=== PATIENT | male | born 1985 | race Caucasian/White ===

== ENCOUNTER 2017-04-05 12:14 | Observation (INO) | payer SELFPAY ==
[2017-04-05] MEDS ORDERED: FAMOTIDINE INJ/PF 20 MG/2 ML SDV IV ONE (12:19)
--- NOTE | 2017-04-05 12:22 | ER Document Report ---
ED General - General Stated Complaint: POSSIBLE ALLERGIC REACTION Time Seen by Provider: 04/05/17 12:19 Notes: -year-old male presents to the ED via EMS for allergic reaction/anaphylaxis. He complains of sudden onset dizziness shortness of breath and itching about an hour ago immediately after being stung by a wasp. Symptoms were constant and severe and got worse. He went to an outpatient clinic who did not have epinephrine but gave him Benadryl and Solu-Medrol intramuscularly, and called 911. EMS gave him a single dose of epinephrine, and about 15 minutes later gave a second because they did not feel he was improving. Unknown if he was never hypotensive but he was normotensive for EMS. He has no known allergies and does not use an EpiPen. In the ED he denies difficulty swallowing throat swelling voice change or shortness of breath and simply feels "jittery" from the epinephrine. Past Medical History - Social History Smoking Status: Unknown if Ever Smoked Family History: None Review of Systems - Review of Systems Notes: GEN: Dizziness, resolved ENT: Denies sore throat, nasal discharge, ear pain EYES: Denies blurry vision, eye pain, discharge CV: Denies chest pain, palpitations, edema RESP: Shortness of breath, resolved GI: Denies abdominal pain, nausea, vomiting, diarrhea MSK: Denies joint pain/swelling, edema, SKIN: Itching LYMPH: Denies swollen glands/lymph nodes NEURO: Denies headache, focal weakness or numbness, dizziness PSYCH: Denies depression, suicidal or homicidal ideation Physical Exam - Vital signs Vitals: Resp Pulse Ox 15 99 04/05/17 12:20 04/05/17 12:20 - Notes Notes: General: No acute distress, well-nourished Head: Atraumatic, normocephalic ENT: Mouth normal, oropharynx moist, no exudates or tonsillar enlargement voice normal. Intraoral structures without edema. Eyes: Conjunctiva normal, pupils equal, lids normal Neck: No JVD, supple, no guarding CVS: N cardiac e, regular rhythm, no murmurs Resp: No resp distress, equal and normal breath sounds bilaterally GI: Nondistended, soft, no tenderness to palpation, no rebound or guarding Ext: No deformities, no edema, normal range of motion in upper and lower ext Skin: blotchy confluent erythroderma/urticaria on face arms and chest. Single insect sting to the forehead without significant swelling. Lymphatic: No lymphadeopathy noted Neuro: Awake, alert. Face symmetric. Course - Re-evaluation Re-evalutation: 04/05/17 12:22 Presented to the ED with resolving episode of anaphylaxis to bee sting. He needed 2 doses of epi prehospital, however his symptoms have all but resolved except for the rash. I will complete the treatment with Pepcid, and observe him closely. 04/05/17 12:40 Reassess patient at 12:35 PM. He is comfortable with no subjective symptoms and has normal vital signs. Continue to observe. Plan for prednisone, Benadryl , and 2 epi-pens on discharge. 04/05/17 12:57 I have discussed with the patient there likely diagnosis, aftercare plan, follow -up plans and my usual and customary return precautions. They verbalized understanding of this. 04/05/17 13:55 Since rash is worsening and he appears slightly short of breath. His vitals are normal, but he feels subjectively like he wants to vomit. I believe he still has some smoldering anaphylaxis I will start him on an epinephrine drip. Spoke with Dr. Sheldon who will admit him to the ICU. - Vital Signs Vital signs: Temp Pulse Resp BP Pulse Ox 23 H 124/80 99 04/05/17 13:10 04/05/17 13:01 04/05/17 13:10 Critical Care Note - Critical Care Note Total time excluding time spent on procedures (mins): 31 Comments: The above patient is critically ill. Not including procedures, but including direct re-evaluations, speaking with patient and/or consultants, interpreting results, and documenting, I spent the total amount of minute listed listed above on critical care time. Discharge - Discharge Clinical Impression: Anaphylactic reaction Qualifiers: Encounter type: initial encounter Qualified Code(s): T78.2XXA - Anaphylactic shock, unspecified, initial encounter Condition: Critical Disposition: ADMITTED INPATIENT Admitting Provider: Hospitalist Unit Admitted: ICU Instructions: Anaphylaxis Kit ([facility]) Additional Instructions: Take [id number] Benadryl, 2 tablets every 6 hours for 3 days. I am also prescribing new epinephrine autoinjector and prednisone to take. The epinephrine is for the next time this occurs, or if her symptoms worsen while at home. Please note that anytime you use her EpiPen you should also call 911. Prescriptions: Diphenhydramine HCl [Benadryl] 25 mg PO Q6 #12 capsule Epinephrine [Epipen 2-Alexandro] 0.3 mg IM PRN PRN #2 ml PRN Reason: Itching Prednisone [Deltasone 20 mg Tablet] 3 tab PO DAILY 5 Days
[2017-04-05] MEDS ORDERED: ONDANSETRON 4 MG TAB.RAPDIS PO ONE (13:10)
[2017-04-05] MEDS ORDERED: ONDANSETRON 4 MG TAB.RAPDIS ONE (13:12)
[2017-04-05] MEDS ORDERED: NORMAL SALINE 1000 ML 1,000 ML IV ONE (13:46)
[2017-04-05] MEDS ORDERED: DEXTROSE 5%-WATER 250 ML with EPINEPHRINE/PF 1 MG IV ONE ×2 (13:50)
[2017-04-05] MEDS ORDERED: EPINEPHRINE INJ/PF 1 MG/1 ML AMPULE IV ONE ×2 (14:15)
[2017-04-05] MEDS ORDERED: ONDANSETRON HCL INJ/PF 4 MG/2 ML SDV IV PRN (14:28)
[2017-04-05] MEDS ORDERED: ACETAMINOPHEN 325 MG TABLET PO PRN (14:28)
--- NOTE | 2017-04-05 14:39 | PDOC H&P ---
History of Present Illness Admission Date/PCP: 04/05/17 14:04 Patient complains of: allergic reaction History of Present Illness: LACEY BELCHER is a 31 year-old male presents to the ED via EMS for allergic reaction/anaphylaxis. He complains of sudden onset dizziness shortness of breath and itching about an hour ago immediately after being stung by a wasp. Symptoms were constant and severe and got worse. He went to an outpatient clinic who did not have epinephrine but gave him Benadryl and Solu-Medrol intramuscularly, and called 911. EMS gave him a single dose of epinephrine, and about 15 minutes later gave a second because they did not feel he was improving. Unknown if he was never hypotensive but he was normotensive for EMS. He has no known allergies and does not use an EpiPen. In the ED he denies difficulty swallowing throat swelling voice change or shortness of breath and simply feels "jittery" from the epinephrine. Received Epi x 2 with good results. Currently denies dyspnea, nausea, vomiting. Past Medical History Cardiac Medical History: Reports: None Pulmonary Medical History: Reports: None EENT Medical History: Reports: None Neurological Medical History: Reports: None Endocrine Medical History: Reports: None Malignancy Medical History: Reports: None GI Medical History: Reports: None Musculoskeltal Medical History: Reports: None Psychiatric Medical History: Reports: None Past Surgical History Past Surgical History: Reports: None Social History Information Source: Patient Lives with: Family Smoking Status: Unknown if Ever Smoked Frequency of Alcohol Use: None Hx Recreational Drug Use: No - Advance Directive Resuscitation Status: Full Code Family History Family History: CAD Parental Family History Reviewed: Yes Children Family History Reviewed: Yes Sibling(s) Family History Reviewed.: Yes Medication/Allergy Home Medications: Diphenhydramine HCl [Benadryl] 25 mg PO Q6 #12 capsule 04/05/17 Epinephrine [Epipen 2-Alexandro] 0.3 mg IM PRN PRN #2 ml 04/05/17 Prednisone [Deltasone 20 mg Tablet] 3 tab PO DAILY 5 Days 04/05/17 Allergies/Adverse Reactions: No Known Allergies Allergy (Unverified 04/05/17 14:09) Review of Systems Constitutional: ABSENT: chills, fever(s), headache(s), weight gain, weight loss Eyes: ABSENT: visual disturbances Ears: ABSENT: hearing changes Cardiovascular: ABSENT: chest pain, dyspnea on exertion, edema, orthropnea, palpitations Respiratory: PRESENT: dyspnea. ABSENT: cough, hemoptysis Gastrointestinal: PRESENT: nausea, vomiting. ABSENT: abdominal pain, constipation, diarrhea, hematemesis, hematochezia Genitourinary: ABSENT: dysuria, hematuria Musculoskeletal: ABSENT: joint swelling Integumentary: ABSENT: rash, wounds Neurological: ABSENT: abnormal gait, abnormal speech, confusion, dizziness, focal weakness, syncope Psychiatric: ABSENT: anxiety, depression, homidical ideation, suicidal ideation Endocrine: ABSENT: cold intolerance, heat intolerance, polydipsia, polyuria Hematologic/Lymphatic: ABSENT: easy bleeding, easy bruising Physical Exam Vital Signs: Temp Pulse Resp BP Pulse Ox 22 H 130/94 H 98 04/05/17 14:01 04/05/17 14:01 04/05/17 14:01 General appearance: PRESENT: no acute distress, well-developed, well-nourished Head exam: PRESENT: atraumatic, normocephalic Eye exam: PRESENT: conjunctiva pink, EOMI, PERRLA. ABSENT: scleral icterus Ear exam: PRESENT: normal external ear exam Mouth exam: PRESENT: moist, tongue midline Neck exam: ABSENT: carotid bruit, JVD, lymphadenopathy, thyromegaly Respiratory exam: PRESENT: clear to auscultation laura. ABSENT: rales, rhonchi, wheezes Cardiovascular exam: PRESENT: RRR. ABSENT: diastolic murmur, rubs, systolic murmur Pulses: PRESENT: normal dorsalis pedis pul Vascular exam: PRESENT: normal capillary refill GI/Abdominal exam: PRESENT: normal bowel sounds, soft. ABSENT: distended, guarding, mass, organolmegaly, rebound, tenderness Rectal exam: PRESENT: deferred Extremities exam: PRESENT: full ROM. ABSENT: calf tenderness, clubbing, pedal edema Neurological exam: PRESENT: alert, awake, oriented to person, oriented to place , oriented to time, oriented to situation, CN II-XII grossly intact. ABSENT: motor sensory deficit Psychiatric exam: PRESENT: appropriate affect, normal mood. ABSENT: homicidal ideation, suicidal ideation Skin exam: PRESENT: dry, intact, warm. ABSENT: cyanosis, rash Assessment & Plan - Diagnosis (1) Anaphylactic reaction Qualifiers: Encounter type: initial encounter Qualified Code(s): T78.2XXA - Anaphylactic shock, unspecified, initial encounter Is this a current diagnosis for this admission?: YesPlan: OBS in ICU. S/p Epi x 2. IV Solumedrol, benadryl, pepcid. - Time Time Spent: 50 to 70 Minutes
[2017-04-05] MEDS ORDERED: DIPHENHYDRAMINE HCL 50 MG/ML VIAL IV SCH (15:00)
[2017-04-05 18:20] VITALS: BP 111/74
--- NOTE | 2017-04-05 18:25 | PDOC DISCHARGE SUMMARY ---
General - Admit/Disc Date/PCP Admission Date/Primary Care Provider: 04/05/17 14:28 Discharge Date: 04/05/17 - Discharge Diagnosis (1) Anaphylactic reaction Is this a current diagnosis for this admission?: Yes - Additional Information Resuscitation Status: Full Code Discharge Diet: Regular Discharge Activity: Activity As Tolerated Home Medications: Diphenhydramine HCl [Benadryl 25 mg Capsule] 1 cap PO Q6 #10 tab 04/05/17 Epinephrine [Epipen 2-Alexandro] 0.3 mg IM Q5MP PRN #1 ml 04/05/17 Famotidine [Pepcid 20 mg Tablet] 20 mg PO BID #6 tablet 04/05/17 Methylprednisolone [Medrol Dosepack (4 mg/Tab) 21 Tab/Dosepak] 4 mg PO ASDIR PRN #21 tab.ds.pk 04/05/17 History of Present Illness Patient complains of: Allergic reaction History of Present Illness: LACEY BELCHER is a 31 year-old male presents to the ED via EMS for allergic reaction/anaphylaxis. He complains of sudden onset dizziness shortness of breath and itching about an hour ago immediately after being stung by a wasp. Symptoms were constant and severe and got worse. He went to an outpatient clinic who did not have epinephrine but gave him Benadryl and Solu-Medrol intramuscularly, and called 911. EMS gave him a single dose of epinephrine, and about 15 minutes later gave a second because they did not feel he was improving. Unknown if he was never hypotensive but he was normotensive for EMS. He has no known allergies and does not use an EpiPen. In the ED he denies difficulty swallowing throat swelling voice change or shortness of breath and simply feels "jittery" from the epinephrine. Received Epi x 2 with good results. Currently denies dyspnea, nausea, vomiting. Hospital Course Hospital Course: Patient was placed in observation status for allergic reaction. He had mild anaphylactic reaction prior to presentation secondary to wasp sting. He was administered epinephrine 2 doses prior to my evaluation. At the time of my evaluation for admission he was having no further shortness of breath, difficulty swallowing, nausea, vomiting. He was monitored in observation status and discharged home in stable condition. Physical Exam Vital Signs: Temp Pulse Resp BP Pulse Ox 99.2 F 68 19 111/74 98 04/05/17 16:55 04/05/17 18:00 04/05/17 18:00 04/05/17 18:00 04/05/17 18:00 Intake & Output 04/04/17 04/05/17 04/06/17 06:59 06:59 06:59 Weight 74.9 kg GENERAL: No acute distress HEENT: Conjunctiva clear, nonicteric, moist mucous membranes, no JVD, midline trachea RESPIRATORY: Clear to auscultation bilaterally, no wheezes, no rhonchi CARDIAC: Regular rate and rhythm, no murmurs/gallops/rubs ABDOMEN: Soft, nondistended, nontender, positive bowel sounds, no rebound, no guarding EXTREMETIES: No edema, cyanosis, clubbing NEUROLOGIC: Alert, oriented to person/place/time, CN's grossly intact, no focal deficits SKIN: No rash, wounds PSYCH: Normal mood, normal affect Qualifiers PATEINT BEING DISCHARGED WITH ANY OF THE FOLLOWING DIAGNOSIS?: No Plan Time Spent: Less than 30 Minutes
[2017-04-05] MEDS ORDERED: FAMOTIDINE INJ/PF 20 MG/2 ML SDV IV SCH (22:00)
[2017-04-05] MEDS ORDERED: METHYLPREDNISOLONE INJ 40 MG/1 ML SDV IV SCH (22:00)
[2017-04-05] MEDS ORDERED: METHYLPREDNISOLONE INJ 125 MG/2 ML SDV IV SCH (22:00)
[2017-04-06] MEDS ORDERED: ENOXAPARIN SODIUM INJ 40 MG/0.4 ML DISP.SYRIN SUBCUT SCH (10:00)
== END 2017-04-05 18:52 | disposition home or self-care (01) ==
LOC: ER 12:14 → INTOOBSV 14:04 → EH 14:04 → UNDOADMOB 14:04 → EH 14:28 → ICU 16:55
PROVIDERS: ADMIT Family Medicine; ATTEND Family Medicine
DX: T63.461A Toxic effect of venom of wasps, accidental (unintentional), initial encounter (principal); T78.2XXA Anaphylactic shock, unspecified, initial encounter
CPT/HCPCS: 99291; 96374; G0378 ×2; J1200; S0119; J7030; S0028